=== PATIENT | male | born 1985 | race Caucasian/White ===

== ENCOUNTER 2016-09-28 10:18 | Emergency (ER) | payer SELFPAY ==
[2016-09-28 10:22] VITALS: BP 129/83; PULSE 84; TEMP 98.1; BMI 35.2
[2016-09-28] MEDS ORDERED: SODIUM CHLORIDE 1,000 ML IV STA (10:55)
--- NOTE | 2016-09-28 11:04 | PDOC ---
History of Present Illness - General Chief Complaint: Diarrhea Stated Complaint: ABD PAIN, DIARRHEA Time Seen by Provider: 09/28/16 10:21 History Source: Patient, Old Records Exam Limitations: No Limitations - History of Present Illness Initial Comments: 09/28/16 10:59 30-year-old male with history of questionable intussusception 2 years ago diagnosed on CAT scan but then had no intraoperative findings on exploratory laparoscopy who presents to the emergency department today with complaints of intermittent left lower quadrant pain for the past 2-3 weeks and watery diarrhea for the past 3 days. The patient describes the pain as dull and nonradiating as well as intermittent. He has no associated nausea or vomiting. He denies fevers chills, complaints. The patient has taken Pepto-Bismol for the diarrhea without significant relief. The patient reports having 12 episodes of diarrhea since Wednesday. There is no blood or mucus in the stool. The patient denies any foods out of the ordinary or travel history. Past History - Past Medical History Allergies/Adverse Reactions: Allergies Allergy/AdvReac Type Severity Reaction Status Date / Time oxycodone [Oxycodone] Allergy Intermediate Itching Verified 09/28/16 10:19 hydrocodone Allergy Verified 09/28/16 10:19 Home Medications: Ambulatory Orders NK [No Known Home Medication] 09/28/16 Cancer: No Diabetes: No GI Disorders: Yes (INTUSSESCEPTION, CHOLECYSTITIS) HTN: No Hypercholesterolemia: No - Surgical History Abdominal Surgery: Yes (EXP LAP) - Psycho/Social/Smoking Cessation Hx Anxiety: No Suicidal Ideation: No Smoking History: Current every day smoker Have you smoked in the past 12 months: Yes Number of Cigarettes Smoked Daily: 5 Information on smoking cessation initiated: Yes 'Breaking Loose' booklet given: 09/28/16 Hx Alcohol Use: No Drug/Substance Use Hx: Yes Substance Use Type: Marijuana Review of Systems - Review of Systems Able to Perform ROS?: Yes Is the patient limited Ukrainian proficient: No Constitutional: No: Symptoms Reported HEENTM: No: Symptoms Reported Respiratory: No: Symptoms reported Cardiac (ROS): No: Symptoms Reported ABD/GI: Yes: Symptoms Reported, See HPI : No: Symptoms Reported Musculoskeletal: No: Symptoms Reported Integumentary: No: Symptoms Reported *Physical Exam - Vital Signs Last Vital Signs Temp Pulse Resp BP Pulse Ox 98.1 F 84 16 129/83 99 09/28/16 10:19 09/28/16 10:19 09/28/16 10:19 09/28/16 10:19 09/28/16 10:19 - Physical Exam Comments: 09/28/16 11:01 GENERAL: Well developed, well nourished. Awake and alert. No acute distress. HEENT: Normocephalic, atraumatic. PERRLA, EOMI. No conjunctival pallor. Sclera are non- icteric. Moist mucous membranes. Oropharynx is clear. NECK: Supple. Full ROM. No JVD. No lymphadenopathy. CARDIOVASCULAR: Regular rate and rhythm. No murmurs, rubs, or gallops. Distal pulses are 2+ and symmetric. PULMONARY: No evidence of respiratory distress. Lungs clear to auscultation bilaterally. No wheezing, rales or rhonchi. ABDOMINAL: Obese abdomen that is soft. There is inconsistent tenderness to palpation in the LLQ. Non-distended. No rebound or guarding. No organomegaly. Normoactive bowel sounds. MUSCULOSKELETAL Normal range of motion at all joints. No bony deformities or tenderness. No CVA tenderness. EXTREMITIES: No cyanosis. No clubbing. No edema. No calf tenderness. SKIN: Warm and dry. Normal capillary refill. No rashes. No jaundice. NEUROLOGICAL: Alert, awake, appropriate. Cranial nerves 2-12 intact. Grossly non-focal exam. PSYCHIATRIC: Cooperative. Good eye contact. Appropriate mood and affect. ED Treatment Course - LABORATORY CBC & Chemistry Diagram: 09/28/16 10:55 09/28/16 10:55 Medical Decision Making - Medical Decision Making 09/28/16 11:02 30-year-old male with history of exploratory laparoscopy 2 years ago for suspected intussusception that was not confirmed intraoperatively presents to the emergency Department with complaints of 2-3 week history of left lower quadrant pain and 2-3 day history of diarrhea. The patient has normal vital signs and has a nonsurgical abdomen on exam. Differential diagnosis includes but is not limited to: Gastroenteritis, regional colitis, irritable bowel disease, inflammatory bowel disease, dehydration, electrolyte abnormality. Plan: 1. Labs 2. IV fluids for hydration 3. Observe and reevaluate 09/28/16 12:25 Addendum: The labs were reviewed and are noted in the EMR. The patient is feeling improved and wants to go home. I have discussed the patient's results with him and have advised him to follow-up with a primary care physician. I have also advised him to return to the emergency department if his symptoms persist, worsen, or new symptoms arise. *DC/Admit/Observation/Transfer Diagnosis at time of Disposition: LLQ pain, Diarrhea - Discharge Dispostion Condition at time of disposition: Stable Admit: No - Patient Instructions Printed Discharge Instructions: Diarrhea, DI for Abdominal Pain-Adult Additional Instructions: Please follow-up with a primary care physician. Return to the emergency department if your symptoms persist, worsen, or new symptoms arise. Make sure that you maintain hydration and keep drinking fluids.
[2016-09-28 11:31] LABS: PH,URINE 5.5 (4.5-8); URINE APPEARANCE Clear; URINE BILIRUBIN Negative (NEGATIVE); URINE BLOOD Negative (NEGATIVE); URINE GLUCOSE (UA) Negative (NEGATIVE); URINE KETONE Negative (NEGATIVE); URINE LEUK ESTERASE Negative (NEGATIVE); URINE NITRITE Negative (NEGATIVE); URINE PROTEIN Negative (NEGATIVE); URINE UROBILINOGEN 0.2 (0.2-1.0)
[2016-09-28 11:32] LABS: URINE COLOR YELLOW
[2016-09-28 11:42] LABS: BASOPHIL 2.4 % (0-2.0); EOSINOPHIL 5.4 % (0-4.5); MCH 29.3 pg (25.7-33.7); MEAN CELL VOLUME 86.1 fl (80-96); NEUTROPHILS 56.7 % (42.8-82.8); PLATELET COUNT 273 K/MM3 (134-434); WHITE BLOOD COUNT 7.1 K/mm3 (4.0-10.8)
[2016-09-28 11:56] LABS: ALBUMIN 4.2 g/dl (3.5-5.0); ALK PHOS 55 U/L (32-92); ANION GAP 6 (8-16); BILIRUBIN,TOTAL 0.6 mg/dl (0.2-1.0); CALCIUM 9.1 mg/dl (8.4-10.2); CO2 22 mmol/L (22-28); CREATININE 0.8 mg/dl (0.6-1.3); GLUCOSE,RANDOM 108 mg/dl (74-106); MAGNESIUM 2.2 mg/dL (1.8-2.4); PHOSPHOROUS 3.5 mg/dl (2.5-4.6); SGOT/AST 21 U/L (10-42); SGPT/ALT 42 U/L (10-40); TOT PROT 6.5 g/dl (6.4-8.3)
== END 2016-09-28 12:34 | disposition home or self-care (01) ==
LOC: FER 10:18
PROC: 3E0337Z Introduction of Electrolytic and Water Balance Substance into Peripheral Vein, Percutaneous Approach (ICD-10-PCS; principal; 2016-09-28)
DX: R10.32 Left lower quadrant pain (principal); R19.7 Diarrhea, unspecified; F17.210 Nicotine dependence, cigarettes, uncomplicated
CPT/HCPCS: 36415; 80053; 81003; 83690; 83735; 84100; 85025; 99282-25

== ENCOUNTER 2019-10-18 11:56 | Day surgery (SDC) | payer OTHER ==
[2019-10-17 11:00] VITALS: BMI 35.9
[~2019-10-18 11:56] MED LIST: LIDOCAINE HCL 2% (50ML VIAL) INF ONE
[2019-10-18] MEDS ORDERED: ceFAZolin SODIUM 1 GM VIAL ONE ×2 (13:28→14:10)
[2019-10-18] MEDS ORDERED: PROPOFOL 20 ML ONE ×2 (13:30→14:05)
[2019-10-18] MEDS ORDERED: MIDAZOLAM HCL 2 MG/2 ML SINGLE DOSE VIAL ONE (13:30)
[2019-10-18] MEDS ORDERED: ONDANSETRON 4 MG/2 ML VIAL IVPUSH PRN (13:37)
[2019-10-18] MEDS ORDERED: oxyCODONE HCL 5 MG TABLET PO PRN (13:37)
[2019-10-18] MEDS ORDERED: LACTATED RINGERS SOLUTION 1,000 ML IV SCH (13:45)
[2019-10-18] MEDS ORDERED: BUPIVACAINE HCL/PF 0.25% (2.5MG/ML) 10 ML VIAL ONE (13:47)
[2019-10-18] MEDS ORDERED: LIDOCAINE HCL 2% (20ML MULTI-DOSE VIAL) ONE (13:48)
[2019-10-18] MEDS ORDERED: DEXAMETHASONE SOD PHOSPHATE 4 MG/1 ML VIAL ONE (14:10)
[2019-10-18] MEDS ORDERED: KETOROLAC TROMETHAMINE 30 MG/1 ML VIAL ONE (14:10)
[2019-10-18] MEDS ORDERED: ONDANSETRON 4 MG/2 ML VIAL ONE (14:10)
[2019-10-18] MEDS ORDERED: LIDOCAINE HCL 2% (50ML VIAL) INF ONE (14:13)
--- NOTE | 2019-10-18 15:37 | OP ---
DATE OF OPERATION: 10/18/2019 PREOPERATIVE DIAGNOSIS: Right ring finger extensor tendon dislocation/subluxation with adhesions and radial sagittal fiber rupture. POSTOPERATIVE DIAGNOSIS: Right ring finger extensor tendon dislocation/subluxation with adhesions and radial sagittal fiber rupture. OPERATIVE PROCEDURE: 1. Centralization and reconstruction of right ring finger extensor tendon. 2. Right extensor tendon tenolysis. SURGEON: Germaine Schwab MD ANESTHESIA TECHNICIAN: GURMEET Abreu ANESTHESIA: Local with sedation. COMPLICATIONS: None. ESTIMATED BLOOD LOSS: Minimal. INDICATION FOR PROCEDURE: The patient is a 33-year-old male with the above finding indicated for operative treatment after failed nonoperative treatment. Risks, benefits, and alternatives were discussed with him at length, and proper informed consent was obtained. DESCRIPTION OF PROCEDURE: After preoperative identification of the patient and correct operative site, patient was brought to the operating room and placed on the table with all prominences well padded. Examination at this time showed continued dislocation of the extensor tendon in the ulnarward direction at the ring finger when he flexed his hand. Right upper extremity was prepped and draped in the usual sterile fashion. Local anesthesia was given, sedation was given, Esmarch bandage used to exsanguinate right upper extremity. Tourniquet was inflated to 250 mmHg. Curvilinear incision was made over the dorsal aspect of the ring finger MP joint. Incision was taken sharply through the skin, with blunt dissection through subcutaneous tissue. Radial sagittal band was found to be partly ruptured, and when he flexed his hand, the extensor tendon was subluxing/dislocating in the ulnarward direction. A tenolysis was performed to free up the extensor tendon and loosen the ulnar aspect of the sagittal fibers which had constricted. This allowed centralization of the tendon. A tendineae was present and was freed to its proximal aspect where it connected to the small finger extensor tendon. This was released to allow further centralization and also to . This tendon was brought distal and weaved underneath the radial sagittal fibers and weaved back onto itself and sewn together including the radial sagittal fibers, this imbrication using a 3-0 Ethibond suture. The patient was awakened from sedation, asked to flex and extend his hand, and the tendon stayed central at this time. It did not sublux either radially or ulnarly. The wound was irrigated and repaired in layers using 4-0 Vicryl and 5-0 fast-absorbing plain gut suture as well as Dermabond. Sterile dressings and a splint were placed. Patient reversed from anesthesia, brought to the recovery room in stable condition. He tolerated the procedure well. Homer Morris, the digital sales assistant, was integral throughout the procedure. Procedure could not have been performed without a skilled operative digital sales assistant. He was integral in providing tensioning while the repair was sutured. This could not have been done without a skilled operative digital sales assistant. GERMAINE SCHWAB M.D. [id number]
[2019-10-18 16:53] VITALS: TEMP 98
[2019-10-18 16:59] VITALS: BP 136/84; PULSE 70
== END 2019-10-18 14:00 | disposition home or self-care (01) ==
LOC: FASU 11:56
PROVIDERS: ATTEND Orthopaedic Surgery Hand Surgery
PROC: 0LQ70ZZ Repair Right Hand Tendon, Open Approach (ICD-10-PCS; 2019-10-18)
PROC: 0LN70ZZ Release Right Hand Tendon, Open Approach (ICD-10-PCS; 2019-10-18)
PROC: 0LQ70ZZ Repair Right Hand Tendon, Open Approach (ICD-10-PCS; principal; 2019-10-18 13:30)
DX: S63.654A Sprain of metacarpophalangeal joint of right ring finger, initial encounter (principal); S63.214A Subluxation of metacarpophalangeal joint of right ring finger, initial encounter; X58.XXXA Exposure to other specified factors, initial encounter; Y93.9 Activity, unspecified; Y92.9 Unspecified place or not applicable

== ENCOUNTER 2019-11-18 17:23 | Inpatient (IN) | payer OTHER ==
--- NOTE | 2019-11-18 18:45 | PDOC ---
History of Present Illness - General Chief Complaint: Pain, Acute Stated Complaint: HAND PAIN Time Seen by Provider: 11/18/19 18:35 - History of Present Illness Initial Comments: 11/18/19 18:47 33 years old past medical history significant for right ring finger tendon rupture status post surgical repair October 17 presents to the emergency department with dehiscence of wound and pus from surgical site. No fever no chills mild pain and discomfort to the site Past History - Medical History Allergies/Adverse Reactions: Allergies Allergy/AdvReac Type Severity Reaction Status Date / Time hydrocodone Allergy Verified 11/18/19 17:24 Home Medications: Ambulatory Orders NK [No Known Home Medication] 09/28/16 Anemia: No Asthma: No Cancer: No Cardiac Disorders: No CVA: No COPD: No CHF: No Dementia: No Diabetes: No GI Disorders: Yes Disorders: No HTN: No Hypercholesterolemia: No Liver Disease: No Seizures: No Thyroid Disease: No - Surgical History Abdominal Surgery: Yes (??Laparoscopy) Appendectomy: No Cardiac Surgery: No Cholecystectomy: No Lung Surgery: No Neurologic Surgery: No Orthopedic Surgery: No - Psycho-Social/Smoking History Smoking History: Never smoked Have you smoked in the past 12 months: Yes Number of Cigarettes Smoked Daily: 5 If you are a former smoker, when did you quit?: 09/11/19 'Breaking Loose' booklet given: 09/28/16 - Substance Abuse Hx (Audit-C & DAST Scrn) How often the patient has a drink containing alcohol: Never Score: In Men: 4 or > Positive; In Women: 3 or > Positive: 0 Screen Result (Pos requires Nsg. Audit-10AR): Negative In the last yr the pt used illegal drug/Rx for NonMed reason: Yes Score: Yes response is considered Positive: 1 Screen Result (Positive result requires Nsg. DAST-10): Positive Review of Systems - Review of Systems Comments:: 11/18/19 18:55 0ROS: A complete review of 10 out of 10 review of systems is taken and is negative apart from what is previously mentioned below and in the HPI. *Physical Exam - Vital Signs Last Vital Signs Temp Pulse Resp BP Pulse Ox 98.4 F 83 17 121/87 98 11/18/19 17:24 11/18/19 17:24 11/18/19 17:24 11/18/19 17:24 11/18/19 17:24 - Physical Exam 11/18/19 18:57 Vitals: Triage Vital signs reviewed General Appearance: No acute distress, well nourished well developed, Head: Atraumatic, Extremities: Decreased range of motion to right ring finger secondary to being splinted neurovascular intact distally Skin: Status post tendon repair right ring finger with dehiscence of wound purulent discharge at site Medical Decision Making - Medical Decision Making 11/18/19 18:58 Please talk to neuro accidentally 33 years old status post recent tendon repair with dehiscence of wound and now purulent drainage. Patient states he fell asleep on hand woke up with pain redness and drainage Case discussed with Dr. Argueta Will admit overnight for orthopedic consultation IV antibiotics and further management. Discharge - Discharge Information Problems reviewed: Yes Clinical Impression/Diagnosis: Finger infection Condition: Stable - Admission No - Follow up/Referral - Patient Discharge Instructions - Post Discharge Activity
[2019-11-18] MEDS ORDERED: CEFAZOLIN 1 GM in DEXTROSE 5%-WATER - 50 ML IVPB ONE (18:59)
[2019-11-18] MEDS ORDERED: ceFAZolin SODIUM 1 GM VIAL ONE (19:27)
[2019-11-18 19:40] LABS: BASO % 0.8 % (0-2.0); EOS % 1.8 % (0-4.5); HEMATOCRIT 52.8 % (35.4-49); LYMPH % 22.7 % (8-40); MCH 30.2 pg (25.7-33.7); MEAN CELL VOLUME 88.9 fl (80-96); MEAN PLT VOLUME 8.7 fl (7.5-11.1); MONO % 8.4 % (3.8-10.2); NEUT % 66.3 % (42.8-82.8); PLATELET COUNT 306 K/MM3 (134-434); RBC 5.94 M/mm3 (4.00-5.60); RDW 12.4 % (11.9-15.9); WHITE BLOOD COUNT 9.1 K/mm3 (4.0-10.8)
--- NOTE | 2019-11-18 19:45 | PDOC ---
*Physical Exam - Vital Signs Last Vital Signs Temp Pulse Resp BP Pulse Ox 98.4 F 83 17 121/87 98 11/18/19 17:24 11/18/19 17:24 11/18/19 17:24 11/18/19 17:24 11/18/19 17:24 - Physical Exam 11/18/19 19:43 Patient's care endorsed to me by Dr. Osuna at the end of his shift. Patient is s/p finger/hand surgery with Dr. Fox and comes back with dehiscense and purulent drainage, no systemic symptoms. To be admitted pending lab results. Ortho is on board and will see the patient tomorow. Ancef was ordered and given. ED Treatment Course - LABORATORY CBC & Chemistry Diagram: 11/18/19 19:38 11/18/19 19:02 - ADDITIONAL ORDERS Additional order review: 11/18/19 19:38 RBC 5.94 H MCV 88.9 MCHC 34.0 RDW 12.4 MPV 8.7 Neutrophils % 66.3 Lymphocytes % 22.7 Monocytes % 8.4 Eosinophils % 1.8 Basophils % 0.8 - Medications Given in the ED: ED Medications Discontinued Medications Generic Name Dose Route Start Last Admin Trade Name Freq PRN Reason Stop Dose Admin Cefazolin Sodium 1 gm/ 50 mls @ 100 mls/hr 11/18/19 18:59 11/18/19 19:31 Dextrose IVPB 11/18/19 19:28 100 mls/hr ONCE ONE Administration Medical Decision Making - Medical Decision Making Provider Orders Category Date Time Status Insert Saline Lock NOW Care 11/18/19 18:59 Active Consult [Physician Consultation] Physician 1 Cons 11/18/19 19:24 Ordered ACTIVATED PTT Stat Lab 11/18/19 19:02 Completed CBC WITH DIFFERENTIAL Stat Lab 11/18/19 19:38 Completed COMP METABOLIC PANEL Stat Lab 11/18/19 19:02 Completed PT/INR (PROTHROMBIN TIME) Stat Lab 11/18/19 19:02 Completed Cefazolin [Ancef -] Medication 11/18/19 19:27 Discontinued 1 gm .ROUTE .STK-MED ONE Cefazolin [Ancef -] 1 gm Medication 11/18/19 18:59 Discontinued Dextrose 5%-Water - [D5w -] 50 ml IVPB ONCE BLOOD CULTURE Stat Micro 11/18/19 19:43 Received WOUND CULTURE Stat Micro 11/18/19 20:14 Received Reminder: new phy cons See Order Reminders 11/18/19 19:24 Ordered Medications Generic Name Dose Route Start Last Admin Trade Name Sanchez PRN Reason Stop Dose Admin Acetaminophen 650 mg 11/18/19 21:53 Tylenol - PO Q6H PRN PAIN LEVEL 4 - 6 Cefazolin Sodium 1 gm in 50 mls @ 100 mls/hr 11/19/19 03:00 Ancef 1 Gm Premixed Ivpb - IVPB Q8H-IV TONA Discontinued Medications Generic Name Dose Route Start Last Admin Trade Name Sanchez PRN Reason Stop Dose Admin Cefazolin Sodium Confirm 11/18/19 19:27 Ancef - Administered 11/18/19 19:28 Dose 1 gm .ROUTE .STK-MED ONE Cefazolin Sodium 1 gm/ 50 mls @ 100 mls/hr 11/18/19 18:59 11/18/19 19:31 Dextrose IVPB 11/18/19 19:28 100 mls/hr ONCE ONE Administration Ketorolac Tromethamine 30 mg 11/18/19 22:49 11/18/19 23:01 Toradol Injection - IVPUSH 11/18/19 22:50 30 mg ONCE ONE Administration Potassium Chloride 40 meq 11/18/19 21:23 11/18/19 21:28 K-Dur - PO 11/18/19 21:24 Not Given ONCE ONE Lab Results WBC 9.1 K/mm3 (4.0-10.8) 11/18/19 19:38 RBC 5.94 M/mm3 (4.00-5.60) H 11/18/19 19:38 Hgb 18.0 GM/dl (11.7-16.9) H 11/18/19 19:38 Hct 52.8 % (35.4-49) H 11/18/19 19:38 MCV 88.9 fl (80-96) 11/18/19 19:38 MCH 30.2 pg (25.7-33.7) 11/18/19 19:38 MCHC 34.0 g/dl (32.0-35.9) 11/18/19 19:38 RDW 12.4 % (11.9-15.9) 11/18/19 19:38 Plt Count 306 K/MM3 (134-434) 11/18/19 19:38 MPV 8.7 fl (7.5-11.1) 11/18/19 19:38 Absolute Neuts (auto) 5.9 K/mm3 11/18/19 19:38 Neutrophils % 66.3 % (42.8-82.8) 11/18/19 19: Lymphocytes % 22.7 % (8-40) 11/18/19 19: Monocytes % 8.4 % (3.8-10.2) 11/18/19 19: Eosinophils % 1.8 % (0-4.5) 11/18/19 19: Basophils % 0.8 % (0-2.0) 11/18/19:38 PT with INR 11.8 SEC (10.2-13.0) 11/18/19 19: INR 1.00 (0.82-1.09) 11/18/19 19:02 PTT (Actin FS) 29.6 SECONDS (25.2-36.5) 11/18/19 19:02 Sodium 136 mmol/L (136-145) 11/18/19 19:02 Potassium 3.8 mmol/L (3.5-5.1) 11/18/19 19:02 Chloride 107 mmol/L (98-107) 11/18/19 19:02 Carbon Dioxide 24 mmol/L (21-32) 11/18/19 19:02 Anion Gap 5 MMOL/L (8-16) L 11/18/19 19:02 BUN 11.0 mg/dl (7-18) 11/18/19 19:02 Creatinine 1.0 mg/dl (0.55-1.3) 11/18/19 19:02 Est GFR (CKD-EPI)AfAm 115.72 11/18/19 19:02 Est GFR (CKD-EPI)NonAf 99.85 11/18/19 19:02 Random Glucose 100 mg/dl (74-106) 11/18/19 19:02 Calcium 9.1 mg/dl (8.5-10) 11/18/19 19:02 Total Bilirubin 1.1 mg/dl (0.2-1) H 11/18/19 19:02 AST 22 U/L (15-37) 11/18/19 19:02 ALT 45 U/L (13-61) 11/18/19 19:02 Alkaline Phosphatase 62 U/L (45-117) 11/18/19 19:02 Total Protein 7.2 g/dl (6.4-8.2) 11/18/19 19:02 Albumin 4.3 g/dl (3.4-5.0) 11/18/19 19:02 I have spoken with VENICE Hahn, patient staying at [facility]/Surg [place], ortho already on board. Discharge - Discharge Information Problems reviewed: Yes Clinical Impression/Diagnosis: Finger infection Post op infection Qualifiers: Encounter type: initial encounter Postoperative infection type: unspecified type Qualified Code(s): T81.40XA - Infection following a procedure, unspecified, initial encounter Condition: Guarded - Admission Yes - Follow up/Referral - Patient Discharge Instructions - Post Discharge Activity
[2019-11-18 19:54] LABS: ALBUMIN 4.3 g/dl (3.4-5.0); BILIRUBIN,TOTAL 1.1 mg/dl (0.2-1); CALCIUM 9.1 mg/dl (8.5-10); POTASSIUM 3.8 mmol/L (3.5-5.1); TOT PROT 7.2 g/dl (6.4-8.2)
[2019-11-18 20:27] LABS: ACTIVATED PTT 29.6 SECONDS (25.2-36.5); PROTHROMBIN TIME (PATIENT) 11.8 SEC (10.2-13.0)
[2019-11-18] MEDS ORDERED: POTASSIUM CHLORIDE TABS 20 MEQ TABLET.ER (FP) PO ONE (21:23)
[2019-11-18] MEDS ORDERED: ACETAMINOPHEN 325 MG TABLET (FP) PO PRN (21:53)
--- NOTE | 2019-11-18 21:56 | HP ---
CHIEF COMPLAINT: Right Finger #4 Pain, Redness, Purulent Discharge PCP: HISTORY OF PRESENT ILLNESS: This is a 33y/o male with a significant PMHx of Right Ring Finger Tendon Rupture s/p surgical repair (October 17). Who presents to the ED with dehiscence of wound and pus from surgical site. Patient reports falling asleep on his right hand and noting that his finger was very painful and white drainage from the surgical site. He reports elevating his hand when at home. He denies fever, chills, cough, SOB, HICKS, dizziness, CP, palpitations, AP, N/V/D, constipation, dysuria. Patient dendies sick contacts or recent travel ER course was notable for: (1) Wound Culture obtained (2) Ancef 1Gm initiated (3) Recent Travel: None PAST MEDICAL HISTORY: Right finger #4 Tendon Rupture Intestinal Complication PAST SURGICAL HISTORY: Tendon Repair R- ring Finger #4 Laparoscopy Social History: Smoking: Denies Alcohol: Denies Drugs: Marijuana Use Lives alone, not working Allergies hydrocodone Allergy (Verified 11/18/19 17:24) HOME MEDICATIONS: Home Medications Medication Instructions Recorded NK [No Known Home Medication] 09/28/16 REVIEW OF SYSTEMS CONSTITUTIONAL: Absent: fever, chills, diaphoresis, generalized weakness, malaise, loss of appetite, weight change HEENT: Absent: rhinorrhea, nasal congestion, throat pain, throat swelling, difficulty swallowing, mouth swelling, ear pain, eye pain, visual changes CARDIOVASCULAR: Absent: chest pain, syncope, palpitations, irregular heart rate, lightheadedness, peripheral edema RESPIRATORY: Absent: cough, shortness of breath, dyspnea with exertion, orthopnea, wheezing, stridor, hemoptysis GASTROINTESTINAL: Absent: abdominal pain, abdominal distension, nausea, vomiting, diarrhea, constipation, melena, hematochezia GENITOURINARY: Absent: dysuria, frequency, urgency, hesitancy, hematuria, flank pain, genital pain MUSCULOSKELETAL: right finger #4 pain and swelling Absent: myalgia, arthralgia, joint swelling, back pain, neck pain SKIN: redness, pus to right finger #4 Absent: rash, itching, pallor HEMATOLOGIC/IMMUNOLOGIC: Absent: easy bleeding, easy bruising, lymphadenopathy, frequent infections ENDOCRINE: Absent: unexplained weight gain, unexplained weight loss, heat intolerance, cold intolerance NEUROLOGIC: Absent: headache, focal weakness or paresthesias, dizziness, unsteady gait, seizure, mental status changes, bladder or bowel incontinence PSYCHIATRIC: Absent: anxiety, depression, suicidal or homicidal ideation, hallucinations. PHYSICAL EXAMINATION Vital Signs - 24 hr 11/18/19 17:24 Temperature 98.4 F Pulse Rate 83 Respiratory 17 Rate Blood Pressure 121/87 O2 Sat by Pulse 98 Oximetry (%) GENERAL: Obese, awake, alert, and fully oriented, in no acute distress. HEAD: Normal with no signs of trauma. EYES: Pupils equal, round and reactive to light, extraocular movements intact, sclera anicteric, conjunctiva clear. No lid lag. EARS, NOSE, THROAT: Ears normal, nares patent, oropharynx clear without exudates. Moist mucous membranes. NECK: Normal range of motion, supple without lymphadenopathy, JVD, or masses. LUNGS: Breath sounds equal, clear to auscultation bilaterally. No wheezes, and no crackles. No accessory muscle use. HEART: Regular rate and rhythm, normal S1 and S2 without murmur, rub or gallop. ABDOMEN: Protuberant, soft, nontender, not distended, normoactive bowel sounds, no guarding, no rebound, no masses. No hepatomegaly or splenomegaly. MUSCULOSKELETAL: Decreased ROM R- finger #4 with tenderness. Normal range of motion at all joints. No bony deformities. No CVA tenderness. UPPER EXTREMITIES: 2+ pulses, warm, well-perfused. No cyanosis. No clubbing. No peripheral edema. LOWER EXTREMITIES: 2+ pulses, warm, well-perfused. No calf tenderness. No peripheral edema. NEUROLOGICAL: Cranial nerves II-XII intact. Normal speech. Normal gait. PSYCHIATRIC: Cooperative. Good eye contact. Appropriate mood and affect. SKIN: Erythema, Purulent white discharge to R finger #4, Warm, dry, normal turgor, no rashes noted, normal capillary refill. Laboratory Results - last 24 hr 11/18/19 11/18/19 11/18/19 19:02 19:02 19:38 WBC 9.1 RBC 5.94 H Hgb 18.0 H Hct 52.8 H MCV 88.9 MCH 30.2 MCHC 34.0 RDW 12.4 Plt Count 306 MPV 8.7 Absolute Neuts (auto) 5.9 Neutrophils % 66.3 Lymphocytes % 22.7 Monocytes % 8.4 Eosinophils % 1.8 Basophils % 0.8 PT with INR 11.8 INR 1.00 PTT (Actin FS) 29.6 Sodium 136 Potassium 3.8 Chloride 107 Carbon Dioxide 24 Anion Gap 5 L BUN 11.0 Creatinine 1.0 Est GFR (CKD-EPI)AfAm 115.72 Est GFR (CKD-EPI)NonAf 99.85 Random Glucose 100 Calcium 9.1 Total Bilirubin 1.1 H AST 22 ALT 45 Alkaline Phosphatase 62 Total Protein 7.2 Albumin 4.3 ASSESSMENT/PLAN: This is a 33 y/o male with a PMHx of Right Finger #4 Tendon Rupture s/p Repair (10/18/19). Admitted with Post Op Surgical Wound Infection, Cellulitis of R- Finger #4 for further evaluation of their emergent condition. Plan: See Problem List FEN PO fluids as tolerated Replete lytes prn Regular Diet DVT ppx OOB Dispo: Requires Inpatient Care Family Medical History Family History: Unremarkable Problem List - Problem (1) Post op infection Assessment/Plan: Wound Culture-pending Blood Cultures-pending No leukocytosis, no neutrophilia Ancef given in ED, will continue Appreciate Ortho consult- Dr Argueta aware, per ED attending Appreciate ID consult Neurovascular checks Elevate extremity Tylenol prn Monitor CBC, CMP Monitor vitals Code(s): T81.40XA - INFECTION FOLLOWING A PROCEDURE, UNSPECIFIED, INIT Qualifiers: Encounter type: initial encounter Postoperative infection type: unspecified type Qualified Code(s): T81.40XA - Infection following a procedure, unspecified, initial encounter (2) Cellulitis Assessment/Plan: see above Code(s): L03.90 - CELLULITIS, UNSPECIFIED (3) Encounter for screening laboratory testing for COVID-19 virus Assessment/Plan: Low Risk COVID PCR-pending Isolation Precautions Code(s): Z11.59 - ENCOUNTER FOR SCREENING FOR OTHER VIRAL DISEASES Visit type - Emergency Visit Emergency Visit: Yes ED Registration Date: 11/18/19 Care time: The patient presented to the Emergency Department on the above date and was hospitalized for further evaluation of their emergent condition. - New Patient This patient is new to me today: Yes Date on this admission: 11/18/19 - Critical Care Critical Care patient: No
[2019-11-18 22:38] VITALS: BMI 37.5
[2019-11-18] MEDS ORDERED: KETOROLAC TROMETHAMINE 30 MG/1 ML VIAL IVPUSH ONE (22:49)
[2019-11-19] MEDS: CEFAZOLIN 1 GM/D5W 1 GM/50 ML BAG IVPB SCH ×2 (02:10→09:24)
[2019-11-19 10:43] VITALS: BP 124/88; PULSE 70; TEMP 98
--- NOTE | 2019-11-19 11:13 | PN ---
Progress Note (short form) - Note Progress Note: Pt sp extensor centralization one month ago. co waking up yesterday with pain and looked at hand and was red. Went to er and Dr Osuna called me because he believed infected due to redness and some pus. Area was cleaned and pt was splinted and elevated and he was admitted for IV abx. Pt states he took off splint once since I saw him but did not goto OT to get relative motion splint as I instructed. "was tough for me to get appointment". He states he feels compl etely better today. Denies any f/c malaise. PE: Afebrile. Well appearing Wound appears healed and there is no redness/warmth, drainage. There is no evidence of abcess. No tenderness. No LN. WBC nl Imp: Resolving/resolved cellulitis Poor compliance with po instruction Plan: Elevevate, splint, PO abx, fu in office tomorrow or wednesday. RTER if worsening Advised again to make immediate apt for OT to make splint
--- NOTE | 2019-11-19 11:51 | DS ---
Physical Exam: SUBJECTIVE: Patient seen and examined OBJECTIVE: Vital Signs Period Temp Pulse Resp BP Sys/Pratt Pulse Ox Last 24 Hr 97.6 F-98.4 F 64-88 17-18 121-130/67-88 98-100 PHYSICAL EXAM GENERAL: The patient is awake, alert, and fully oriented, in no acute distress. HEAD: Normal with no signs of trauma. EYES: PERRL, extraocular movements intact, sclera anicteric, conjunctiva clear. ENT: Ears normal, nares patent, oropharynx clear without exudates, moist mucous membranes. NECK: Trachea midline, full range of motion, supple. LUNGS: Breath sounds equal, clear to auscultation bilaterally, no wheezes, no crackles, no accessory muscle use. HEART: Regular rate and rhythm, S1, S2 without murmur, rub or gallop. ABDOMEN: Soft, nontender, nondistended, normoactive bowel sounds, no guarding, no rebound, no hepatosplenomegaly, no masses. EXTREMITIES: 2+ pulses, warm, well-perfused, no edema. right 2nd digit splinted and covered with clean bandage, no exudate noted NEUROLOGICAL: Cranial nerves II through XII grossly intact. Normal speech, gait not observed. PSYCH: Normal mood, normal affect. SKIN: Warm, dry, normal turgor, no rashes or lesions noted.+ tattoos LABS Laboratory Results - last 24 hr 11/18/19 11/18/19 11/18/19 19:02 19:02 19:38 WBC 9.1 RBC 5.94 H Hgb 18.0 H Hct 52.8 H MCV 88.9 MCH 30.2 MCHC 34.0 RDW 12.4 Plt Count 306 MPV 8.7 Absolute Neuts (auto) 5.9 Neutrophils % 66.3 Lymphocytes % 22.7 Monocytes % 8.4 Eosinophils % 1.8 Basophils % 0.8 PT with INR 11.8 INR 1.00 PTT (Actin FS) 29.6 Sodium 136 Potassium 3.8 Chloride 107 Carbon Dioxide 24 Anion Gap 5 L BUN 11.0 Creatinine 1.0 Est GFR (CKD-EPI)AfAm 115.72 Est GFR (CKD-EPI)NonAf 99.85 Random Glucose 100 Calcium 9.1 Total Bilirubin 1.1 H AST 22 ALT 45 Alkaline Phosphatase 62 Total Protein 7.2 Albumin 4.3 HOSPITAL COURSE: Date of Admission:11/18/19 Date of Discharge: 11/19/19 Minutes to complete discharge: 30 Discharge Summary Problems reviewed: Yes Reason For Visit: POSTOPERATIVE INFECTION OF FINGER Current Active Problems Cellulitis (Acute) Encounter for screening laboratory testing for COVID-19 virus (Acute) Finger infection (Acute) Post op infection (Acute) Hospital Course: This is a 33y/o male with a significant PMHx of Right Ring Finger Tendon Rupture s/p surgical repair (October 17). Who presents to the ED with dehiscence of wound and pus from surgical site. Patient reports falling asleep on his right hand and noting that his finger was very painful and white drainage from the surgical site. He reports elevating his hand when at home. He denies fever, chills, cough, SOB, HICKS, dizziness, CP, palpitations, AP, N/V/D, constipation, dysuria. Patient dendies sick contacts or recent travel ER course was notable for: (1) Wound Culture obtained (2) Ancef 1Gm initiated Pt evaluated by hand specialist and was deemed stable for discharge home on the morning of 11/18. Pt transitioned to keflex 500mg QID x 7 days. Plan of Treatment: Plan: Elevate, splint, PO abx, follow up in office with hand specialist 11/19 or 11/20. Return to ED if worsening Advised again to make immediate apt for OT to make splint Goals: complete resolution of symptoms Condition: Improved - Instructions Diet, Activity, Other Instructions: Home care When you are home: Take the prescribed antibiotic medicine you are given as directed until it is gone. Take it even if you feel better. It treats the infection and stops it from returning. Not taking all the medicine can make future infections hard to treat. Keep the infected area clean. When possible, raise the infected area above the level of your heart. This helps keep swelling down. Talk with your healthcare provider if you are in pain. Ask what kind of hspx-asv-rfivmwv medicine you can take for pain. Apply clean bandages as advised. Take your temperature once a day for a week. Wash your hands often to prevent spreading the infection. In the future, wash your hands before and after you touch cuts, scratches, or bandages. This will help prevent infection. When to call your healthcare provider Call your healthcare provider right away if you have any of the following: Trouble or pain when moving the joints above or below the infected area Discharge or pus draining from the area Fever of 100.4F (38C) or higher, or as directed by your healthcare provider Pain that gets worse in or around the infected Redness that gets worse in or around the infected area, particularly if the area of redness expands to a wider area Shaking chills Swelling of the infected area Vomiting [email or web address] Disposition: HOME - Home Medications Comprehensive Discharge Medication List: Ambulatory Orders Cephalexin [Keflex] 500 mg PO QID 7 Days #28 capsule 11/19/19 Prescription Drug Monitoring Program (I-STOP) results: I-STOP not reviewed Problem List - Problems (1) Cellulitis Code(s): L03.90 - CELLULITIS, UNSPECIFIED (2) Encounter for screening laboratory testing for COVID-19 virus Code(s): Z11.59 - ENCOUNTER FOR SCREENING FOR OTHER VIRAL DISEASES This patient is new to me today: Yes Date on this admission: 11/19/19 Emergency Visit: Yes ED Registration Date: 11/18/19 Care time: The patient presented to the Emergency Department on the above date and was hospitalized for further evaluation of their emergent condition. Critical Care patient: No - Discharge Referral Referred to [facility] No
== END 2019-11-19 12:15 | disposition home or self-care (01) | DRG 721 ==
LOC: FER 17:23 → FM/S 19:42
PROVIDERS: ADMIT Internal Medicine; ATTEND Nurse Practitioner Family
DX: T81.40XA Infection following a procedure, unspecified, initial encounter (principal); Y83.9 Surgical procedure, unspecified as the cause of abnormal reaction of the patient, or of later complication, without mention of misadventure at the time of the procedure; L03.011 Cellulitis of right finger; E66.9 Obesity, unspecified; Z68.37 Body mass index [BMI] 37.0-37.9, adult
CPT/HCPCS: 36415; 80053; 85025; 85610; 85730; 87040; 87070; 87205; 99285-25; U0003

== ENCOUNTER 2019-12-07 15:00 | Emergency (ER) | payer OTHER ==
--- NOTE | 2019-12-07 15:23 | TELE ---
HPI Do you have fever,cough or shortness of breath?: Yes - General Reason For Visit: COVID TEST Time Seen by Provider: 12/07/19 15:19 History Source: Patient Exam Limitations: Clinical Condition - History of Present Illness Timing/Duration: unsure Associated Symptoms: reports: denies symptoms 12/07/19 15:19 Patient with no significant past medical history present to [facility] for weekly testing due to grandmother visiting over the weekend and wants to make sure he does not have COVID. Patient denies any symptoms. Denies fever, chills, shortness of breath, cough. Denies recent travel or sick contact Past History - Medical History Allergies/Adverse Reactions: Allergies Allergy/AdvReac Type Severity Reaction Status Date / Time hydrocodone Allergy Verified 11/18/19 17:24 Home Medications: Ambulatory Orders Cephalexin [Keflex] 500 mg PO QID 7 Days #28 capsule 11/19/19 Anemia: No Asthma: No Cancer: No Cardiac Disorders: No CVA: No COPD: No CHF: No Dementia: No Diabetes: No GI Disorders: Yes (Divertuclitis) Disorders: No HTN: No Hypercholesterolemia: No Liver Disease: No Seizures: No Thyroid Disease: No - Surgical History Abdominal Surgery: Yes (??Laparoscopy) Appendectomy: No Cardiac Surgery: No Cholecystectomy: No Lung Surgery: No Neurologic Surgery: No Orthopedic Surgery: No - Psycho-Social/Smoking History Smoking History: Never smoked Have you smoked in the past 12 months: Yes Number of Cigarettes Smoked Daily: 5 If you are a former smoker, when did you quit?: 09/11/19 'Breaking Loose' booklet given: 09/28/16 Review of Systems - Review of Systems Able to Perform ROS?: Yes Limited Syrian proficient: No Constitutional: No: Chills, Fever, Malaise HEENTM: No: Symptoms Reported, See HPI, Eye Pain, Blurred Vision, Tearing, Recent change in vision, Double Vision, Cataracts, Ear Pain, Ocular Prothesis, Ear Discharge, Nose Pain, Nose Congestion, Tinnitus, Nose Bleeding, Hearing Loss, Throat Pain, Throat Swelling, Mouth Pain, Dental Problems, Difficulty Swallowing, Mouth Swelling, Other Respiratory: No: Symptoms reported, See HPI, Cough, Orthopnea, Shortness of Breath, SOB with Exertion, SOB at Rest, Stridor, Wheezing, Productive cough, Hemoptysis, Other Cardiac (ROS): No: Symptoms Reported, See HPI, Chest Pain, Edema, Irregular Heart Rate, Lightheadedness, Palpitations, Syncope, Chest Tightness, Other ABD/GI: No: Symptoms Reported, Nausea, Vomiting Integumentary: No: Symptoms Reported, Rash Neurological: No: Symptoms reported, Headache, Dizziness All Other Systems: Reviewed and Negative *Physical Exam - Physical Exam General Appearance: Yes: Nourished, Appropriately Dressed. No: Apparent Distress HEENT: positive: Normal ENT Inspection Respiratory/Chest: negative: Respiratory Distress, Accessory Muscle Use Musculoskeletal: positive: Normal Inspection Extremity: positive: Normal Inspection, Normal Range of Motion Integumentary: positive: Normal Color Neurologic: positive: Fully Oriented, Alert, Normal Mood/Affect, Normal Response, Motor Strength 07/10 - Medical Decision Making 12/07/19 15:21 Patient with no significant past medical history present to [facility] for weekly testing due to grandmother visiting over the weekend and wants to make sure he does not have COVID. Patient denies any symptoms. Denies fever, chills, shortness of breath, cough. Denies recent travel or sick contact Patient asymptomatic at this time. COVID test ordered as per patient's request. Patient to go to [facility] drive-through testing center today to be tested. Patient stable for discharge Discharge Diagnosis at time of Disposition: Encounter for screening laboratory testing for COVID-19 virus - Referrals Follow-up Referral(s): Maura Hand MD [Primary Care Provider] - - Patient Instructions - Discharge Disposition: HOME Condition at time of Disposition: Stable
--- OUTSIDE RECORDS SUMMARY | 2019-12-07 20:52 | XMS ---
:1985 Author Organization [facility] Support Name Relationship Address Phone UE Unavailable Unavailable Unavailable RAS ALEX MOTHER [address] [place] [address] FILIBERTO ALEX SR FATHER [address] [place] [address] FILIBERTO ALEX Parent [address] [place] [address] Re-disclosure Warning The records that you are about to access may contain information from federally- assisted alcohol or drug abuse programs. If such information is present, then the following federally mandated warning applies: This information has been disclosed to you from records protected by federal confidentiality rules (42 CFR part 2). The federal rules prohibit you from making any further disclosure of this information unless further disclosure is expressly permitted by the written consent of the person to whom it pertains or as otherwise permitted by 42 CFR part 2. A general authorization for the release of medical or other information is NOT sufficient for this purpose. The Federal rules restrict any use of the information to criminally investigate or prosecute any alcohol or drug abuse patient.The records that you are about to access may contain highly sensitive health information, the redisclosure of which is protected by Article 27-F of the [facility] Public Health law. If you continue you may haveaccess to information: Regarding HIV / AIDS; Provided by facilities licensed or operated by the [facility] Office of Mental Health; or Provided by the [facility] Office for People With Developmental Disabilities. If such information is present, then the following [facility] mandated warning applies: This information has been disclosed to you from confidential records which are protected by state law. State law prohibits you from making any further disclosure of this information without the specific written consent of the person to whom it pertains, or as otherwise permitted by law. Any unauthorized further disclosure in violation of state law may result in a fine or fpc sentence or both. A general authorization for the release of medical or other information is NOT sufficient authorization for further disclosure. Insurance Providers Payer name Policy type Policy ID Covered Covered green party's Policy P jennifer / Coverage green party ID relationship to Brown Inf ormation type brown MVP [place] [id number] SP [id number] [facility] INS [id number] SP [id number] [facility] Results ID Date Data Source [id number] 11/18/2019 10:31:00 PM EDT [facility] Name Value Range Interpretation Description Data Sup porting Code Source(s) Document(s ) SARS [facility] coronavirus 2 RNA This lab was ordered by NORBERT MUKHERJEE and reported by [facility]. ID Date Data Source [id number] 10/14/2019 11:00:00 AM EDT [facility] Name Value Range Interpretation Description Data Sup porting Code Source(s) Document(s ) SARS [facility] coronavirus 2 RNA This lab was ordered by NORBERT MUKHERJEE and reported by [facility]. Procedure
== END 2019-12-07 15:23 | disposition home or self-care (01) ==
LOC: JVIRT 15:00
DX: Z11.59 Encounter for screening for other viral diseases (principal)
CPT/HCPCS: Q3014-GT; U0003